=== PATIENT | female | born 1975 | race Caucasian/White ===

== ENCOUNTER 2017-10-02 10:30 | Emergency (ER) | payer OTHER ==
[2017-10-02] MEDS ORDERED: TDAP ADULT 0.5 ML INJ (BOOSTRIX) IM ONE (11:04)
[2017-10-02] MEDS ORDERED: CIPROFLOXACIN 500 MG TAB PO ONE (11:06)
--- NOTE | 2017-10-02 11:10 | EDPHY ---
H & P Stated Complaint: razor blade through shoe into r foot Time Seen by Provider: 10/02/17 11:07 HPI/ROS: HPI: This is a 41-year-old female who presents with Chief Complaint: Razor blade and right 4th toe Location: Right 4th toe Quality: Razor blade Duration: Prior to arrival Signs and Symptoms: No bleeding, no radiation, no numbness, no weakness, no tingling, no incontinence, no decreased range of motion, + swelling, + pain Timing: Sudden Severity: Moderate Context: Patient works at [employer], wearing tennis shoes, in her work area when she accidentally stepped on 1 and 0.5 in razor blade. It went through the sole of her shoe and into the her 4th toe. She was immediately brought to the emergency room. Unsure of last tetanus shot. Denies paresthesias/skin color changes/decreased range of motion. Patient reports that the pain is mild in nature but increases with any movement. She is unable to bear weight on the foot. Modifying Factors: None Comment: ROS: see HPI Constitutional: No fever, no chills, no weight loss Eyes: No blurred vision Respiratory: No shortness of breath, no cough Cardiovascular: No chest pain Gastrointestinal: No nausea, no vomiting no diarrhea Genitourinary: No dysuria Extremities: No myalgias Neurologic: No weakness, no numbness Skin: No rashes Hematologic: No bruising, no bleeding MEDICAL/SURGICAL/SOCIAL HISTORY: Medical history: Generally healthy. Does not take any regular medications. Surgical history: Denies Social history: Employed. CONSTITUTIONAL: awake and alert, no obvious distress HEENT: Atraumatic and normocephalic, PERRL, EOMI. Tympanic membranes clear. Oropharynx clear, no exudate and moist pink mucosa. Airway patent. No lymphadenopathy. No meningismus. Cardiovascular: Normal S1/S2, regular rate, regular rhythm, without murmur rub or gallop. PULMONARY/CHEST: Symmetrical and nontender. Clear to auscultation bilaterally. Good air movement. No accessory muscle usage. ABDOMEN: Soft, nondistended, nontender, no rebound, no guarding, no peritoneal signs, no masses or organomegaly. No CVAT. EXTREMITIES: 2/2 DP and PT pulses, strength 5/5, small pinpoint puncture site at 4th toe pad; no surrounding erythema. DIP/MTP joint flexion extension intact with good light touch sensation. no deformities, no clubbing, no cyanosis or edema. NEUROLOGICAL: no focal neuro deficits. GCS 15. SKIN: Warm and dry, no erythema. no rash. Good capillary refill. Source: Patient Exam Limitations: No limitations - Personal History LMP (Females 10-55): 8-14 Days Ago Current Tetanus/Diphtheria Vaccine: Yes - Medical/Surgical History Hx Asthma: No Hx Chronic Respiratory Disease: No Hx Diabetes: No Hx Cardiac Disease: No Hx Renal Disease: No Hx Cirrhosis: No Hx Alcoholism: No Hx HIV/AIDS: No Hx Splenectomy or Spleen Trauma: No Other PMH: choly - Social History Smoking Status: Never smoked Constitutional: Initial Vital Signs Temperature (C) 36.7 C 10/02/17 10:42 Heart Rate 94 10/02/17 10:42 Respiratory Rate 17 10/02/17 10:42 Blood Pressure 109/88 H 10/02/17 10:42 O2 Sat (%) 97 10/02/17 10:42 O2 Delivery Mode Room Air Allergies/Adverse Reactions: Penicillins Allergy (Verified 10/02/17 10:41) Home Medications: Medication Instructions Recorded Ciprofloxacin [Cipro] 500 mg PO BID #10 tab 10/02/17 Medical Decision Making ED Course/Re-evaluation: X-ray, IM and oral medications, wound care Patient given tetanus booster and ciprofloxacin as puncture wound on sole of foot Soaked and irrigated copiously. X-ray shows no foreign bodies Bacitracin clean sterile dressing applied. Given cast shoe. No signs of neurovascular compromise/tenting of skin/compartment syndrome/ extremities and joints examined above and below area of concern and are neurovascularly intact. This patient was seen under the supervision of my primary supervising physician. I evaluated care for this patient independently. Differential Diagnosis: Differential diagnosis includes but is not limited to tendon injury, nerve injury, infection, foreign body, fracture. - Data Points Medications Given: Discontinued Medications Ciprofloxacin (Cipro) 500 mg PO EDNOW ONE PRN Reason: Protocol Stop: 10/02/17 11:07 Last Admin: 10/02/17 11:20 Dose: 500 mg Diphtheria/Tetanus/Acell Pertussis (Boostrix) 0.5 ml IM .ONCE ONE Stop: 10/02/17 11:05 Last Admin: 10/02/17 11:21 Dose: 0.5 ml Departure - Departure Disposition: Home, Routine, Self-Care Clinical Impression: Puncture wound of sole of foot without complication Qualifiers: Encounter type: initial encounter Laterality: right Qualified Code(s): S91.331A - Puncture wound without foreign body, right foot, initial encounter Condition: Good Instructions: Puncture Wound (ED) Additional Instructions: Keep the dressing dry and in place for 48 hours. After 48 hours, you may remove the dressing; wash the site daily with mild soap and water; then pat dry. Take Tylenol 650 mg every 4 hours and/or Ibuprofen 600 mg every 8 hours with food as needed for pain. Take all of your antibiotics until complete. Apply ice for 30 minutes at a time; 2-3 times per day for the next 1-2 days. Monitor for signs and symptoms of infection. If any of these occur; return to the emergency room for evaluation. The x-rays obtained in the emergency department today demonstrate no evidence of an obvious fracture or foreign body. Referrals: KENZIE POE [Other] - As per Instructions Prescriptions: Ciprofloxacin [Cipro] 500 mg PO BID #10 tab
[2017-10-02 11:56] VITALS: BP 110/74; PULSE 68; RESP 16; TEMP 98.6; O2SAT 98
== END 2017-10-02 11:56 | disposition home or self-care (01) ==
DX: S91.331A Puncture wound without foreign body, right foot, initial encounter (principal); Z23 Encounter for immunization; W26.8XXA Contact with other sharp object(s), not elsewhere classified, initial encounter; Y92.69 Other specified industrial and construction area as the place of occurrence of the external cause; Y99.8 Other external cause status; Y93.89 Activity, other specified
CPT/HCPCS: L4386